=== PATIENT | female | born 1950 | race Caucasian/White ===

== ENCOUNTER → 2025-01-10 10:54 | Outpatient (REF) | payer MEDICARE, OTHER, SELFPAY | LOC: HWRCS 10:54 | PROVIDERS: ATTENDING PHYSICIAN Internal Medicine Cardiovascular Disease; FAMILY PHYSICIAN Internal Medicine | DX: I10 Essential (primary) hypertension (principal); I35.0 Nonrheumatic aortic (valve) stenosis | CPT/HCPCS: 93306 ==

== ENCOUNTER → 2025-05-20 07:20 | Outpatient (REF) | payer MEDICARE, OTHER, SELFPAY | LOC: RAD 07:20 | PROVIDERS: ATTENDING PHYSICIAN Internal Medicine Cardiovascular Disease; FAMILY PHYSICIAN Internal Medicine | DX: R42 Dizziness and giddiness (principal); H93.13 Tinnitus, bilateral | CPT/HCPCS: 70496; 70498; Q9967 ==

== ENCOUNTER → 2025-06-17 13:28 | Outpatient (REF) | payer MEDICARE, OTHER, SELFPAY | LOC: RCS 13:28 | PROVIDERS: ATTENDING PHYSICIAN Internal Medicine Cardiovascular Disease; FAMILY PHYSICIAN Internal Medicine | DX: I10 Essential (primary) hypertension (principal); Z82.49 Family history of ischemic heart disease and other diseases of the circulatory system; I24.89 Other forms of acute ischemic heart disease | CPT/HCPCS: 93017 ==

== ENCOUNTER → 2025-06-26 07:29 | Outpatient (REF) | payer MEDICARE, OTHER, SELFPAY | LOC: HWRCS 07:29 | PROVIDERS: ATTENDING PHYSICIAN Internal Medicine Cardiovascular Disease; FAMILY PHYSICIAN Internal Medicine | DX: R94.39 Abnormal result of other cardiovascular function study (principal); I10 Essential (primary) hypertension; I24.89 Other forms of acute ischemic heart disease | CPT/HCPCS: 78452; 93017; A9500 ==